=== PATIENT | female | born 1990 | race African-American/Black ===

== ENCOUNTER 2017-11-22 08:40 | Emergency (ER) | payer MEDICAID, OTHER | END 2017-11-22 09:15 | disposition home or self-care (01) | LOC: MADERS 08:40 | DX: J11.1 Influenza due to unidentified influenza virus with other respiratory manifestations (principal) | CPT/HCPCS: 99283 ==

== ENCOUNTER 2019-11-03 23:06 | Emergency (ER) | payer MEDICAID, SELFPAY ==
[2019-11-03] MEDS ORDERED: cefTRIAXone\\ROCEPHIN 250 MG VIAL ONE (23:25)
[2019-11-03] MEDS ORDERED: Azithromycin 250 MG TAB ONE (23:25)
[2019-11-03 23:33] LABS: Pregnancy Test - Urine (BHCG) Negative (Negative); Pregu Control Background? CLEAR/WHITE (CLR/WHITE); Pregu Control Bar Appear? YES (CONTROL BAR); Specific Gravity 1.023 (1.002-1.036)
== END 2019-11-03 23:49 | disposition home or self-care (01) ==
LOC: MADERS 23:06
DX: Z20.2 Contact with and (suspected) exposure to infections with a predominantly sexual mode of transmission (principal)
CPT/HCPCS: 81025; 87491; 87591; 96372; 99283; J0696

== ENCOUNTER 2019-12-08 15:26 | Emergency (ER) | payer BC, SELFPAY ==
[2019-12-08] MEDS ORDERED: Oseltamivir 75 MG CAP ONE (16:42)
== END 2019-12-08 16:56 | disposition home or self-care (01) ==
LOC: MADERS 15:26
DX: J10.1 Influenza due to other identified influenza virus with other respiratory manifestations (principal); B30.9 Viral conjunctivitis, unspecified
CPT/HCPCS: 87804; 99283